=== PATIENT | male | born 1985 | race Caucasian/White ===

== ENCOUNTER 2021-07-16 08:57 | Inpatient (IN) ==
[2021-07-16] MEDS ORDERED: LORazepam 2 MG/1 ML VIAL IV STA (09:14)
[2021-07-16] MEDS ORDERED: SODIUM CHLORIDE 0.9% 1000ML 1,000 ML IV ONE (09:14)
--- NOTE | 2021-07-16 09:18 | Emergency Department Note ---
Impression & Plan Alcoholic intoxication, Alcohol withdrawal syndrome, Thrombocytopenia ED Provider Note NAME: ADALBERTO HARRIS AGE: 35 SEX: M : 1985 ARRIVES VIA: Walk-In INFORMANT: Patient ED PROVIDER(S): Truman Canseco DO CHIEF COMPLAINT: alcohol withdraw HPI: Patient is a 35-year-old male who presents ER as he wants to stop drinking alcohol. He notes he is an alcoholic and drinks a gallon of vodka a day in combination with multiple beers. He was sober for about 5 months and he started back up 2 to 3 months ago. He notes that his been trying to cut back on amount of vodka that he is drinking and is may be down to a half a gallon. This morning he is already had 8 beers. He has been trying to get into rehab for about 6 weeks and has been unsuccessful. He notes he is trying to taper down but continues to have shakes and feeling his heart race. Denies any headache or change in vision. No chest pain or shortness of breath. No other exacerbating or remitting factors. 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 ROS: See above HPI for pertinent positives & negatives. A total of 10 systems reviewed and were otherwise negative. PAST MEDICAL HISTORY:See Below PAST SURGICAL HISTORY:See Below FAMILY HISTORY:See Below SOCIAL HISTORY:See Below HOME MEDICATIONS:See Below ALLERGIES:See Below VITALS:See Below PHYSICAL EXAMINATION: GENERAL: Sitting up in bed, alert, anxious, slight tremors in the legs and hands EYE EXAM: normal conjunctiva. OROPHARYNX: no exudate, no erythema, lips, buccal mucosa, and tongue normal and mucous membranes are moist NECK: supple, no nuchal rigidity, no adenopathy, non-tender LUNGS: Clear to auscultation. Normal chest wall mechanics HEART: no murmurs, S1 normal and S2 normal ABDOMEN: abdomen soft, non-tender, normo-active bowel sounds, no masses, no rebound or guarding. UPPER EXTREMITIES: upper extremities are grossly normal. LOWER EXTREMITIES: No pitting edema. NEURO EXAM: Normal sensorium, cranial nerves II-XII grossly intact, normal speech, no gross weakness of arms, no gross weakness of legs. MEDICAL DECISION MAKING: Patient is a 35-year-old male who presents the ER for above-stated complaint. He notes he would like to detox from alcohol. IV was established blood work obtained. Labs show mild leukopenia 4. No significant anemia. Platelets were significantly low at 370. BMP with mild hypokalemia 3.4. Bilirubin was unremarkable. LFTs were unremarkable. Lipase was normal. UA was clean. Alcohol 320. He was given a small dose of Ativan due to the tremors and the hypertension with systolic pressures in the 160s. Patient does have a history of withdrawals. Discussed with patient and father at bedside we will discussed the hospitalist. Triage Nursing notes reviewed. Limited review of prior medical records performed Vital Signs: reviewed and remarkable for HTN and tachy Differential diagnosis: Overdose, toxicologic, infection, hypoglycemia, electrolyte abnormalities, cardiac sources, intracerebral event, neurologic, trauma, as well as other pathologies. ER treatment provided: See below Diagnostics interpreted by me: ECG: none Cardiac Monitoring: An order was placed for continuous cardiac monitoring. The monitor shows a rate of 92 with sinus rhythm. Laboratory studies: As stated above and show below. Imaging studies: See below Consultation(s): Discussed with Carolynn hardy for further evaluation Procedures: none Critical Care: None Past Med/Surg History Social History Smoking Status: Never smoker Feels Safe at Home: Yes Allergies Allergies Allergy/AdvReac Type Severity Reaction Status Date / Time amoxicillin [From Augmentin] Allergy Intermediate Vomiting Verified 07/16/21 13:17 clavulanic acid Allergy Intermediate Vomiting Verified 07/16/21 13:17 [From Augmentin] Results & Data (ED) Vital Signs Vital Signs - 24 hr 07/16/21 09:00 07/16/21 09:14 07/16/21 09:35 Temperature 36.7 C Temperature Source Temporal Artery Scan Oral Pulse Rate 99 H Pulse Rate from SpO2 Sensor Pulse Rhythm Regular Pulse Strength Normal Respiratory Rate 20 Respiratory Effort / Characteristics Non-Labored Spontaneous Respiratory Depth Normal Normal Respiratory Pattern Regular Blood Pressure 162/100 H Blood Pressure Mean 120 Blood Pressure Position Sitting Pulse Oximetry 98 Oxygen Delivery Method Room Air Room Air Room Air Sepsis Recent Fever Within 48 Hours No Sepsis New/Unexplained Change in Mental Status N/A Sepsis Action Taken by Nursing No Action Required 07/16/21 09:40 07/16/21 10:00 07/16/21 10:30 Temperature Temperature Source Pulse Rate 90 75 78 Pulse Rate from SpO2 Sensor Pulse Rhythm Pulse Strength Respiratory Rate 22 21 20 Respiratory Effort / Characteristics Respiratory Depth Respiratory Pattern Blood Pressure 140/89 134/80 Blood Pressure Mean 106 98 Blood Pressure Position Pulse Oximetry Oxygen Delivery Method Sepsis Recent Fever Within 48 Hours Sepsis New/Unexplained Change in Mental Status Sepsis Action Taken by Nursing 07/16/21 11:00 07/16/21 11:30 Temperature Temperature Source Pulse Rate 83 89 Pulse Rate from SpO2 Sensor 93 H Pulse Rhythm Pulse Strength Respiratory Rate 19 20 Respiratory Effort / Characteristics Respiratory Depth Respiratory Pattern Blood Pressure 124/80 150/107 H Blood Pressure Mean 94 121 Blood Pressure Position Pulse Oximetry 93 Oxygen Delivery Method Sepsis Recent Fever Within 48 Hours Sepsis New/Unexplained Change in Mental Status Sepsis Action Taken by Nursing Laboratory Data Result diagrams: 07/16/21 09:30 07/16/21 09:30 Lab Results 07/16/21 07/16/21 07/16/21 Range/Units 09:30 09:30 09:30 WBC 4.05 L (4.8-10.8) K/uL RBC 5.17 (4.7-6.1) M/uL Hgb 15.5 (14.0-18.0) g/dL Hct 43.7 (42-52) % MCV 84.5 (80-100) fL MCH 30.0 (25-34) pg MCHC 35.5 (32-36) g/dL RDW Std Deviation 48.0 H (36.4-46.3) fL RDW Coeff of Hailey 15.5 H (11.5-14.5) % Plt Count 37 L (130-400) K/uL MPV 10.4 (7.4-10.4) fL Immature Gran % (Auto) 0.0 % Neut % (Auto) 35.0 % Lymph % (Auto) 37.8 % [place] % (Auto) 23.5 % Eos % (Auto) 2.7 % Baso % (Auto) 1.0 % Neut # (Auto) 1.42 (1.4-6.5) K/uL Lymph # (Auto) 1.53 (1.2-3.4) K/uL [place] # (Auto) 0.95 H (0.11-0.59) K/uL Eos # (Auto) 0.11 (0-0.5) K/uL Baso # (Auto) 0.04 (0-0.2) K/uL Immature Gran # (Auto) 0.00 (0.00-0.02) K/uL Platelet Estimate Decreased L (Normal) Sodium 138 (136-145) mmol/L Potassium 3.4 L (3.5-5.1) mmol/L Chloride 104 (98-107) mmol/L Carbon Dioxide 24 (21-32) mmol/L Anion Gap 10 (3-11) BUN 6 (6-23) mg/dl Creatinine 0.76 (0.6-1.4) mg/dl Est Cr Clr Drug Dosing 167.6 ml/min Est GFR ( Amer) 136.0 ml/min Est GFR (Non-Af Amer) 117.4 ml/min BUN/Creatinine Ratio 7.9 L (10-20) Glucose 108 H (70-99(Fasting)) mg/dl Calcium 9.1 (8.5-10.1) mg/dl Total Bilirubin 1.0 (0.2-1.0) mg/dl AST 183 H (13-39) U/L ALT 83 H (7-52) U/L Alkaline Phosphatase 97 (34-104) U/L Total Protein 8.1 (6.0-8.3) gm/dl Albumin 4.3 (3.4-5.0) gm/dl Globulin 3.8 (2.5-4.0) gm/dl Albumin/Globulin Ratio 1.1 (0.9-2) Lipase 62 (11-82) U/L Urine Color Urine Appearance (Clear) Urine pH (4.5-7.5) Ur Specific [place] (1.000-1.030) Urine Protein (Negative) Urine Glucose (UA) (Negative) Urine Ketones (Negative) Urine Blood (Negative) Urine Nitrite (Negative) Urine Bilirubin (Negative) Urine Urobilinogen (Negative) Ur Leukocyte Esterase (Negative) Urine WBC (Auto) (0-5) /hpf Urine RBC (Auto) (0-4) /hpf U Hyaline Cast (Auto) (0-5) /lpf U Epithel Cells (Auto) (0-5) /lpf Urine Bacteria (Auto) (Negative) Ethyl Alcohol mg/dL 319.8 H (<10.0) mg/dl SARS-CoV-2, RNA, NAAT (NEGATIVE) 07/16/21 07/16/21 Range/Units 11:30 12:25 WBC (4.8-10.8) K/uL RBC (4.7-6.1) M/uL Hgb (14.0-18.0) g/dL Hct (42-52) % MCV (80-100) fL MCH (25-34) pg MCHC (32-36) g/dL RDW Std Deviation (36.4-46.3) fL RDW Coeff of Hailey (11.5-14.5) % Plt Count (130-400) K/uL MPV (7.4-10.4) fL Immature Gran % (Auto) % Neut % (Auto) % Lymph % (Auto) % [place] % (Auto) % Eos % (Auto) % Baso % (Auto) % Neut # (Auto) (1.4-6.5) K/uL Lymph # (Auto) (1.2-3.4) K/uL [place] # (Auto) (0.11-0.59) K/uL Eos # (Auto) (0-0.5) K/uL Baso # (Auto) (0-0.2) K/uL Immature Gran # (Auto) (0.00-0.02) K/uL Platelet Estimate (Normal) Sodium (136-145) mmol/L Potassium (3.5-5.1) mmol/L Chloride (98-107) mmol/L Carbon Dioxide (21-32) mmol/L Anion Gap (3-11) BUN (6-23) mg/dl Creatinine (0.6-1.4) mg/dl Est Cr Clr Drug Dosing ml/min Est GFR ( Amer) ml/min Est GFR (Non-Af Amer) ml/min BUN/Creatinine Ratio (10-20) Glucose (70-99(Fasting)) mg/dl Calcium (8.5-10.1) mg/dl Total Bilirubin (0.2-1.0) mg/dl AST (13-39) U/L ALT (7-52) U/L Alkaline Phosphatase (34-104) U/L Total Protein (6.0-8.3) gm/dl Albumin (3.4-5.0) gm/dl Globulin (2.5-4.0) gm/dl Albumin/Globulin Ratio (0.9-2) Lipase (11-82) U/L Urine Color Yellow Urine Appearance Clear (Clear) Urine pH 7.0 (4.5-7.5) Ur Specific [place] 1.003 (1.000-1.030) Urine Protein Negative (Negative) Urine Glucose (UA) Negative (Negative) Urine Ketones Negative (Negative) Urine Blood Trace H (Negative) Urine Nitrite Negative (Negative) Urine Bilirubin Negative (Negative) Urine Urobilinogen Negative (Negative) Ur Leukocyte Esterase Negative (Negative) Urine WBC (Auto) 0 (0-5) /hpf Urine RBC (Auto) 0-4 (0-4) /hpf U Hyaline Cast (Auto) 0 (0-5) /lpf U Epithel Cells (Auto) 0-5 (0-5) /lpf Urine Bacteria (Auto) Negative (Negative) Ethyl Alcohol mg/dL (<10.0) mg/dl SARS-CoV-2, RNA, NAAT NEGATIVE (NEGATIVE) Administered Medications Discontinued Medications Sodium Chloride (Nss 1000ml) 1,000 mls @ 999 mls/hr IV .[id number] ONE Stop: 07/16/21 10:14 Last Infusion: 07/16/21 10:32 Dose: 0 mls/hr Documented by: [id number] Admin: 07/16/21 09:32 Dose: 999 mls/hr Documented by: [id number] Lorazepam (Lorazepam 2 Mg/1 Ml Vial) 0.5 mg IV NOW STA Stop: 07/16/21 09:15 Last Admin: 07/16/21 09:32 Dose: 0.5 mg Documented by: [id number] Discharge Plan Visit Data Chief Complaint: Detox Request Stated Complaint: ALCOHOL DETOX REQUEST ED Provider: Truman Canseco Discharge Problem: Alcoholic intoxication, Alcohol withdrawal syndrome, Thrombocytopenia Discharge Instructions Eduardo/Other Patient Handouts: ED Alcohol Withdrawal Activity Restrictions/Additional Instructions: Please follow up with your primary care doctor with in the next 24 hours. Any worsening of your symptoms, please return to the ED immediately. This includes any fevers greater than 100.4, worsening pain, chest pain, shortness breath, persistent nausea, vomiting, persistent shaking of the upper extremities, elevated heart rate, confusion, is hallucinating, unable to eat or drink, or any other concerning signs or symptoms from your standpoint. When you follow-up with your PCP tomorrow/primary care doctor please make sure that you follow-up in regards to your platelets which are low at 40. You are given a prescription for Librium. You should not drink alcohol while taking this medication. If you become too sleepy while taking this medication do not take the next dose. You can decrease the dose but you can never take more than what is prescribed. Reasons to decrease are becoming very sleepy or lethargic or confused. If you take this medication and you still continue to withdrawal as you have before in the past please return to the closest ER. Do not drink, drive, operate heavy machinery or work within 24 hours of taking this medication. Again on day 1 your written for 2 tabs every 6 hours. If he becomes very tired or somnolent or confused or more lethargic not easily arousable please do not give any additional medication until he wakes up and becomes back to baseline as we discussed at bedside. If he becomes too sleepy or unable to arouse you must call EMS and return to the hospital immediately. Again do not drink alcohol or take any other sedatives in combination with this medication as it can cause respiratory depression and could kill you. You were found to have a blood pressure greater than 120 systolic over 90 diastolic. Due to the new Medicare guidelines, we are now recommending that you follow up with your primary care doctor in regards to this elevated blood pressure. Forms Stand Alone Forms: My [facility], Suicide Prevention Resources Referrals Referrals: PCP,NO [Physician] - Discharge Problem: Alcoholic intoxication Qualifiers: Complication of substance-induced condition: uncomplicated Qualified Code(s): F10.920 - Alcohol use, unspecified with intoxication, uncomplicated Alcohol withdrawal syndrome Qualifiers: Complication of substance-induced condition: uncomplicated Qualified Code(s): F10.230 - Alcohol dependence with withdrawal, uncomplicated
[2021-07-16 10:02] LABS: Albumin Globulin Ratio 1.1 (0.9-2); Albumin Level 4.3 gm/dl (3.4-5.0); BUN Creatinine Ratio 7.9 (10-20); Calcium 9.1 mg/dl (8.5-10.1); Creatinine Clr Calc Pharmacy 167.6 ml/min; Est GFR (Non-African American) 117.4 ml/min; Globulin 3.8 gm/dl (2.5-4.0); Potassium 3.4 mmol/L (3.5-5.1); Total Protein 8.1 gm/dl (6.0-8.3)
[2021-07-16 10:10] LABS: Basophils # (auto) 0.04 K/uL (0-0.2); Eosinophils # (auto) 0.11 K/uL (0-0.5); Eosinophils % (auto) 2.7 %; Hematocrit (blood only) 43.7 % (42-52); Hemoglobin 15.5 g/dL (14.0-18.0); Lymphocytes # (auto) 1.53 K/uL (1.2-3.4); Lymphocytes % (auto) 37.8 %; Mean Corpuscular Hgb Conc 35.5 g/dL (32-36); Mean Corpuscular Volume 84.5 fL (80-100); Mean Platelet Volume 10.4 fL (7.4-10.4); Monocytes # (auto) 0.95 K/uL (0.11-0.59); Monocytes % (auto) 23.5 %; Neutrophils # (auto) 1.42 K/uL (1.4-6.5); Platelet Count 37 K/uL (130-400); Platelet Estimate Decreased (Normal); RDW Coefficient of Variation 15.5 % (11.5-14.5); Red Blood Count 5.17 M/uL (4.7-6.1); White Blood Count 4.05 K/uL (4.8-10.8)
--- NOTE | 2021-07-16 12:51 | History & Physical Report ---
Date of Service July 16, 2021 Assessment & Plan (1) Alcohol withdrawal syndrome: Plan: Here requesting alcohol detox-last drink was the a.m. of 07/16, alcohol level 319 on arrival-drinks 1 gallon of vodka and 4 beers daily Has a history of alcohol withdrawal seizures and has been to rehab multiple times in the past, last seizure 2018 He has more recently been sober for as long as 7 months at a time in the last several years With known cirrhosis of the liver, high risk for outpatient detox -Admit to telemetry unit -AWSS protocol -Start Librium taper dosed for liver disease -IV Ativan as needed for elevated AWSS -Give banana bag x1 now, then start thiamine 200 mg IV once daily and folic acid 1 mg p.o. once daily along with multivitamin daily from home -Check ECG now for baseline -Give Protonix 40 mg p.o. once daily x2-week course (2) Alcohol use disorder: Plan: As above Requests inpatient alcohol rehab transfer after medically cleared from detox (3) Cirrhosis of liver: Plan: Follows with hepatology in [place] Has a history of esophageal varices that of been banded 9 times in the past, last EGD 2018 No recent vomiting or hematemesis or melena He reports he forgot to continue taking propranolol as prescribed previously With platelets 38K on arrival, INR not checked in the ED, and with elevated AST and ALT -Restart propranolol 10 mg p.o. twice daily for portal hypertension -Check INR in the morning If INR is normal, his Maddrey discriminant score is very low at only 1.0 and meld score also low at 8 He is compensated at this time Check hepatitis panel in the morning Limit Tylenol dosing to no more than 2 g in a 24-hour. Follow-up with hepatology after discharge -Follow LFTs, CBC, INR in the morning (4) Hypokalemia: Plan: Potassium mildly low on arrival Replaced with 20 mEq potassium chloride p.o. Follow BMP and magnesium levels, replete magnesium if low (5) Thrombocytopenia: Plan: Platelets 38 on arrival, he reports they have been lower than this in the past Related to his cirrhosis No evidence of bleeding at this time Follow CBC (6) Anxiety disorder: Plan: Continue home Prozac He reports he takes BuSpar but I do not see that it has been prescribed least in the last year and his external medication history-will not restart at this time (7) Portal hypertension: Plan: As above Restart propranolol 10 mg p.o. twice daily and titrate up as able to (8) HTN (hypertension), benign: Plan: Blood pressures controlled to mildly elevated at this time Secondary to alcohol withdrawal, also with history of essential hypertension Continue home lisinopril 20 mg daily Starting propranolol as above for portal hypertension (9) Esophageal varices: Plan: With a history of banding x9 No evidence of bleeding at this time Follow-up with GI after discharge Starting propranolol (10) Asthma: Plan: No acute exacerbation Continue albuterol HFA as needed Plan: DVT prophylaxis-SCDs only given thrombocytopenia Disposition-admit to telemetry unit, expect a least a 2 midnight stay. Plan is for transfer to inpatient alcohol rehab from here if possible-Case management consult placed History of Present Illness Chief Complaint: Alcohol detox Primary Care Provider: Jazmin Silveira This patient is a 35-year-old male with history of alcohol use disorder, alcohol withdrawal seizures, cirrhosis with esophageal varices, HTN, and asthma, who presents to the ER with request to detox from alcohol. He reports he has called numerous alcohol rehab programs both in and out of [place] for the last month and has not had any success with finding a place that will accept him. The main barrier to acceptance is that he has cirrhosis of the liver and the detox programs feel he would be best served to detox in a hospital setting. His last drink was just a few hours ago prior to coming to this hospital. He typ ically drinks 4 beers in the morning and then 1 gallon of vodka after that each day. The patient would like to be transferred directly to an inpatient alcohol rehab after he is medically cleared from alcohol detoxification. In the ER, he is feeling drowsy as he received Ativan, but denies nausea or vomiting, no abdominal pains, no bleeding from anywhere, no chest pain or shortness of breath. No fevers or Covid symptoms. He was found to have elevated AST and ALT but normal bilirubin, and platelets were low at 38,000 which he reports is not that low for him. He has received platelet transfusions in the past. He is vaccinated and boosted against Covid and tested negative for Covid upon admission. Allergies Allergy/AdvReac Type Severity Reaction Status Date / Time amoxicillin [From Augmentin] Allergy Intermediate Vomiting Verified 07/16/21 13:17 clavulanic acid Allergy Intermediate Vomiting Verified 07/16/21 13:17 [From Augmentin] Home Medications Medication Instructions Recorded Confirmed Type albuterol sulfate 90 mcg/actuation 1 puff INHALATION ONCE PRN 07/16/21 07/16/21 History aerosol inhaler fluoxetine 40 mg capsule (Prozac) 40 mg PO DAILY 07/16/21 07/16/21 History lisinopril 20 mg tablet 20 mg PO DAILY 07/16/21 07/16/21 History multivitamin 1 tab PO DAILY 07/16/21 07/16/21 History Past Med/Surg History Medical History Alcohol use disorder Anxiety disorder Asthma Cirrhosis of liver Esophageal varices History of seizure HTN (hypertension), benign Portal hypertension Surgical History No pertinent past surgical history Family History Other Family history non-contributory Social History Smoking Status: Never smoker Hx Alcohol Use: Yes Alcohol type: beer and hard liquor Alcohol type Comment: 1 gallon vodka and 4 beers daily Alcohol Intake Frequency: 4 or More x per/Week Hx Substance Use: No marital status: Single Current Living Situation: Family Current Living Situation Comment: Lives with parents current occupational status: unemployed and previously employed Feels Safe at Home: Yes Review of Systems Review of Systems: All systems reviewed & are unremarkable except as noted in HPI & below Physical Exam Constitutional: WD/WN, vitals as above Eyes: PERRL, conjunctivae normal, anicteric sclerae ENMT: external ear and nose normal, oropharynx normal Neck: trachea midline, no thyromegaly Respiratory: normal respiratory effort, lungs clear to auscultation Cardiovascular: RRR, no murmur, no edema Chest (Breasts): Chest: normal inspection of chest Gastrointestinal (Abdomen): normal bowel sounds, soft, nontender, no hepatosp lenomegaly Musculoskeletal: Extremities: extremities normal to inspection; no cyanosis and no clubbing Skin: no rashes, warm and dry Neurologic: moves all extremities and awake; no focal motor deficits Psychiatric: A+Ox3, euthymic affect Lymphatic: no lymphedema Results & Data Results & Data ([facility]) Vital Signs (Past 12 Hours) Vital Signs Temp Pulse Resp BP Pulse Ox 07/16/21 11:30 89 20 150/107 H 93 07/16/21 11:00 83 19 124/80 07/16/21 10:30 78 20 134/80 07/16/21 10:00 75 21 140/89 07/16/21 09:40 90 22 07/16/21 09:00 36.7 C 99 H 20 162/100 H 98 Laboratory Results 07/16/21 07/16/21 07/16/21 Range/Units 12:25 11:30 11:30 WBC (4.8-10.8) K/uL RBC (4.7-6.1) M/uL Hgb (14.0-18.0) g/dL Hct (42-52) % MCV (80-100) fL MCH (25-34) pg MCHC (32-36) g/dL RDW Std Deviation (36.4-46.3) fL RDW Coeff of Hailey (11.5-14.5) % Plt Count (130-400) K/uL MPV (7.4-10.4) fL Immature Gran % (Auto) % Neut % (Auto) % Lymph % (Auto) % [place] % (Auto) % Eos % (Auto) % Baso % (Auto) % Neut # (Auto) (1.4-6.5) K/uL Lymph # (Auto) (1.2-3.4) K/uL [place] # (Auto) (0.11-0.59) K/uL Eos # (Auto) (0-0.5) K/uL Baso # (Auto) (0-0.2) K/uL Immature Gran # (Auto) (0.00-0.02) K/uL Platelet Estimate (Normal) Sodium (136-145) mmol/L Potassium (3.5-5.1) mmol/L Chloride (98-107) mmol/L Carbon Dioxide (21-32) mmol/L Anion Gap (3-11) BUN (6-23) mg/dl Creatinine (0.6-1.4) mg/dl Est Cr Clr Drug Dosing ml/min Est GFR ( Amer) ml/min Est GFR (Non-Af Amer) ml/min BUN/Creatinine Ratio (10-20) Glucose (70-99(Fasting)) mg/dl Calcium (8.5-10.1) mg/dl Total Bilirubin (0.2-1.0) mg/dl AST (13-39) U/L ALT (7-52) U/L Alkaline Phosphatase (34-104) U/L Total Protein (6.0-8.3) gm/dl Albumin (3.4-5.0) gm/dl Globulin (2.5-4.0) gm/dl Albumin/Globulin Ratio (0.9-2) Lipase (11-82) U/L Urine Color Yellow Urine Appearance Clear (Clear) Urine pH 7.0 (4.5-7.5) Ur Specific [place] 1.003 (1.000-1.030) Urine Protein Negative (Negative) Urine Glucose (UA) Negative (Negative) Urine Ketones Negative (Negative) Urine Blood Trace H (Negative) Urine Nitrite Negative (Negative) Urine Bilirubin Negative (Negative) Urine Urobilinogen Negative (Negative) Ur Leukocyte Esterase Negative (Negative) Urine WBC (Auto) 0 (0-5) /hpf Urine RBC (Auto) 0-4 (0-4) /hpf U Hyaline Cast (Auto) 0 (0-5) /lpf U Epithel Cells (Auto) 0-5 (0-5) /lpf Urine Bacteria (Auto) Negative (Negative) Urine Opiates Screen Neg (Neg) Ur Methadone, Qual Neg (Neg) Urine Barbiturates Neg (Neg) Ur Phencyclidine (PCP) Neg (Neg) U Amphetamin/Meth Scrn Neg (Neg) MDMA (Ecstasy) Screen Neg (Neg) U Benzodiazepines Scrn Neg (Neg) Ur Cocaine Metabolite Neg (Neg) U Marijuana (THC) Screen Neg (Neg) Ethyl Alcohol mg/dL (<10.0) mg/dl SARS-CoV-2, RNA, NAAT NEGATIVE (NEGATIVE) 07/16/21 07/16/21 07/16/21 Range/Units 09:30 09:30 09:30 WBC 4.05 L (4.8-10.8) K/uL RBC 5.17 (4.7-6.1) M/uL Hgb 15.5 (14.0-18.0) g/dL Hct 43.7 (42-52) % MCV 84.5 (80-100) fL MCH 30.0 (25-34) pg MCHC 35.5 (32-36) g/dL RDW Std Deviation 48.0 H (36.4-46.3) fL RDW Coeff of Hailey 15.5 H (11.5-14.5) % Plt Count 37 L (130-400) K/uL MPV 10.4 (7.4-10.4) fL Immature Gran % (Auto) 0.0 % Neut % (Auto) 35.0 % Lymph % (Auto) 37.8 % [place] % (Auto) 23.5 % Eos % (Auto) 2.7 % Baso % (Auto) 1.0 % Neut # (Auto) 1.42 (1.4-6.5) K/uL Lymph # (Auto) 1.53 (1.2-3.4) K/uL [place] # (Auto) 0.95 H (0.11-0.59) K/uL Eos # (Auto) 0.11 (0-0.5) K/uL Baso # (Auto) 0.04 (0-0.2) K/uL Immature Gran # (Auto) 0.00 (0.00-0.02) K/uL Platelet Estimate Decreased L (Normal) Sodium 138 (136-145) mmol/L Potassium 3.4 L (3.5-5.1) mmol/L Chloride 104 (98-107) mmol/L Carbon Dioxide 24 (21-32) mmol/L Anion Gap 10 (3-11) BUN 6 (6-23) mg/dl Creatinine 0.76 (0.6-1.4) mg/dl Est Cr Clr Drug Dosing 167.6 ml/min Est GFR ( Amer) 136.0 ml/min Est GFR (Non-Af Amer) 117.4 ml/min BUN/Creatinine Ratio 7.9 L (10-20) Glucose 108 H (70-99(Fasting)) mg/dl Calcium 9.1 (8.5-10.1) mg/dl Total Bilirubin 1.0 (0.2-1.0) mg/dl AST 183 H (13-39) U/L ALT 83 H (7-52) U/L Alkaline Phosphatase 97 (34-104) U/L Total Protein 8.1 (6.0-8.3) gm/dl Albumin 4.3 (3.4-5.0) gm/dl Globulin 3.8 (2.5-4.0) gm/dl Albumin/Globulin Ratio 1.1 (0.9-2) Lipase 62 (11-82) U/L Urine Color Urine Appearance (Clear) Urine pH (4.5-7.5) Ur Specific [place] (1.000-1.030) Urine Protein (Negative) Urine Glucose (UA) (Negative) Urine Ketones (Negative) Urine Blood (Negative) Urine Nitrite (Negative) Urine Bilirubin (Negative) Urine Urobilinogen (Negative) Ur Leukocyte Esterase (Negative) Urine WBC (Auto) (0-5) /hpf Urine RBC (Auto) (0-4) /hpf U Hyaline Cast (Auto) (0-5) /lpf U Epithel Cells (Auto) (0-5) /lpf Urine Bacteria (Auto) (Negative) Urine Opiates Screen (Neg) Ur Methadone, Qual (Neg) Urine Barbiturates (Neg) Ur Phencyclidine (PCP) (Neg) U Amphetamin/Meth Scrn (Neg) MDMA (Ecstasy) Screen (Neg) U Benzodiazepines Scrn (Neg) Ur Cocaine Metabolite (Neg) U Marijuana (THC) Screen (Neg) Ethyl Alcohol mg/dL 319.8 H (<10.0) mg/dl SARS-CoV-2, RNA, NAAT (NEGATIVE) ECG Additional Comments: ECG on 07/16/2021 at 1414 with sinus rhythm, rate 77, first-degree AV block, no ischemic changes Code Status & VTE Plan VTE Prophylaxis Plan VTE Prophylaxis will be ordered: Yes PG Care Time/CCT Total # of Minutes Spent Total Time Spent with Patient: Total time spent is greater than 50% in coordination of care (as documented) at patient's floor/unit and/or counseling patient: Coding Level of Care Code 70544 Initial Inpt Care Lvl 3 Diagnoses Alcohol withdrawal syndrome F10.230 Complication of substance-induced condition: uncomplicated Thrombocytopenia D69.6 Alcohol use disorder Anxiety disorder F41.9 Portal hypertension K76.6 Esophageal varices I85.00 Asthma J45.909 Cirrhosis of liver K74.60 HTN (hypertension), benign I10 Hypokalemia E87.6 (1) Alcohol withdrawal syndrome Complication of substance-induced condition: uncomplicated Qualified Code(s): F10.230 - Alcohol dependence with withdrawal, uncomplicated
[2021-07-16 13:22] LABS: Appearance Urine Clear (Clear); Bacteria Urine Automated Negative (Negative); Bilirubin Urine Negative (Negative); Blood Urine Trace (Negative); Cast Urine Automated 0 /lpf (0-5); Color Urine Yellow; Epithelial Cell Urine Auto 0-5 /lpf (0-5); Glucose Urine UA Negative (Negative); Ketones Urine Negative (Negative); Leukocyte Esterase Urine Negative (Negative); Nitrite Urine Negative (Negative); Protein Urine Negative (Negative); RBC Urine Automated 0-4 /hpf (0-4); Specific Gravity Urine 1.003 (1.000-1.030); Urobilinogen Urine Negative (Negative); WBC Urine Automated 0 /hpf (0-5)
[2021-07-16] MEDS ORDERED: POTASSIUM CHLORIDE CRTAB 20 MEQ TABCR PO STA (13:28)
[2021-07-16] MEDS ORDERED: MULTI-VITAMIN INFUSION 10 ML, THIAMINE HCL 100 MG, FOLIC ACID 1 MG in SODIUM CHLORIDE 0... IV ONE (13:28)
[2021-07-16] MEDS ORDERED: chlordiazePOXIDE ALCOHOL WITHDRAWL 25MG PO STA (13:42)
[2021-07-16 13:50] LABS: Amphetamines+Metham, Urine Neg (Neg); Barbiturates, Urine Neg (Neg); Benzodiazepine, Urine Neg (Neg); Cocaine, Urine Neg (Neg); MDMA (Ecstacy), Urine Neg (Neg); Methadone, Urine Neg (Neg); Opiate, Urine Neg (Neg); Phencyclidine, Urine Neg (Neg)
[2021-07-16] MEDS: CHLORDIAZEPOXIDE 25MG STARTING DOSE PO SCH ×2 (14:30→20:28)
[2021-07-16] MEDS ORDERED: MAGNESIUM HYDROXIDE SUSP 30 ML UDC PO PRN (16:15)
[2021-07-16] MEDS ORDERED: ONDANSETRON INJ 2 MG/ML 2 ML VIAL IV PRN (16:15)
[2021-07-16] MEDS ORDERED: ACETAMINOPHEN 325 MG TAB PO PRN (16:15)
[2021-07-16] MEDS ORDERED: ALUMINUM/MAGNESIUM SUSP 30 ML UDC PO PRN (16:15)
[2021-07-16] MEDS ORDERED: ATIVAN IV ALCOHOL WITHDRAWL IV PRN (16:15)
[2021-07-16] MEDS ORDERED: chlordiazePOXIDE HCl 25 MG CAP PO SCH (16:15)
[2021-07-16] MEDS ORDERED: POLYETHYLENE (MIRALAX) 17 GM PACK PO PRN (16:15)
[2021-07-16] MEDS ORDERED: ALBUTEROL HFA 8 GM INHALER INH PRN (16:15)
--- NOTE | 2021-07-16 16:15 | Electrocardiogram Report ---
Test Reason : Blood Pressure : / mmHG Vent. Rate : 077 BPM Atrial Rate : 077 BPM P-R Int : 202 ms QRS Dur : 102 ms QT Int : 394 ms P-R-T Axes : 022 007 021 degrees QTc Int : 445 ms Poor data quality, interpretation may be adversely affected Normal sinus rhythm Poor R wave progression, consider anterior ND vs. lead placement vs. LVH possible inferior ND (old) Abnormal ECG No previous ECGs available Confirmed by John Bragg ([id number]) on 07/16/2021 4:15:13 PM Referred By: REFERRED SELF Confirmed By:Jh Bragg
[2021-07-16] MEDS: PANTOprazole 40 MG TAB PO SCH (16:37)
[2021-07-16] MEDS: PROPRANOLOL HCL 10 MG TAB PO SCH ×2 (17:08→21:24)
[2021-07-16] MEDS: LACTATED RINGER'S 1,000 ML IV SCH ×2 (17:13→21:25)
[2021-07-16] MEDS: LORazepam 2 MG/1 ML VIAL IV PRN ×4 (17:14→23:49)
[2021-07-16] MEDS ORDERED: MAGNESIUM SULFATE / D5W 1 GM/100 ML BAG IV ONE (18:53)
[2021-07-17] MEDS: LORazepam 2 MG/1 ML VIAL IV PRN ×9 (00:33→22:55)
[2021-07-17] MEDS: CHLORDIAZEPOXIDE 25MG STARTING DOSE PO SCH ×2 (01:31→08:38)
[2021-07-17 05:27] LABS: INR 1.2 (0.9-1.1); Prothrombin Time 12.2 Seconds (9.0-12.0)
[2021-07-17 05:49] LABS: Hematocrit (blood only) 39.8 % (42-52); Hemoglobin 13.6 g/dL (14.0-18.0); Mean Corpuscular Hemoglobin 29.6 pg (25-34); Mean Corpuscular Hgb Conc 34.2 g/dL (32-36); Mean Corpuscular Volume 86.7 fL (80-100); Platelet Count 27 K/uL (130-400); RDW Coefficient of Variation 15.6 % (11.5-14.5); RDW Standard Deviation 49.8 fL (36.4-46.3); Red Blood Count 4.59 M/uL (4.7-6.1); White Blood Count 1.88 K/uL (4.8-10.8)
[2021-07-17 05:50] LABS: Basophils # (auto) 0.02 K/uL (0-0.2); Basophils % (auto) 1.1 %; Eosinophils # (auto) 0.05 K/uL (0-0.5); Eosinophils % (auto) 2.7 %; Lymphocytes # (auto) 0.58 K/uL (1.2-3.4); Lymphocytes % (auto) 30.9 %; Monocytes % (auto) 21.3 %; Neutrophils # (auto) 0.83 K/uL (1.4-6.5); Platelet Estimate SIGNIFIC DECREASED (Normal)
[2021-07-17 06:02] LABS: Albumin Level 3.8 gm/dl (3.4-5.0); BUN Creatinine Ratio 11.1 (10-20); Bilirubin Direct 0.4 mg/dl (0-0.2); Bilirubin,Total 1.6 mg/dl (0.2-1.0); Calcium 8.6 mg/dl (8.5-10.1); Creatinine Clr Calc Pharmacy 201.8 ml/min; Est GFR (African American) 146.9 ml/min; Est GFR (Non-African American) 126.8 ml/min; Magnesium 1.7 mg/dl (1.7-2.4); Potassium 3.9 mmol/L (3.5-5.1)
--- NOTE | 2021-07-17 07:45 | Hospitalist Progress Note ---
Date of Service July 17, 2021 Assessment & Plan (1) Alcohol withdrawal syndrome: Plan: Here requesting alcohol detox-last drink was the a.m. of 07/16, alcohol level 319 on arrival-drinks 1 gallon of vodka and 4 beers daily Has a history of alcohol withdrawal seizures and has been to rehab multiple times in the past, last seizure 2018 He has more recently been sober for as long as 7 months at a time in the last several years With known cirrhosis of the liver, high risk for outpatient detox Did give gabapentin load and escalate Librium to 50 every 8 we will discontinue taper and follow clinically -AWSS protocol Was given IV banana bag in ER and thiamine IV once daily and folic acid 1 mg p.o. once daily along with multivitamin daily from home -Give Protonix 40 mg p.o. once daily x2-week course (2) Alcohol use disorder: Plan: As above Requests inpatient alcohol rehab transfer after medically cleared from detox however discussion with case management on 07/17/2021 the patient says he would prefer outpatient rehab now (3) Cirrhosis of liver: Plan: Follows with hepatology in [place] Has a history of esophageal varices that of been banded 9 times in the past, last EGD 2018 No recent vomiting or hematemesis or melena He reports he forgot to continue taking propranolol as prescribed previously With platelets 38K on arrival, INR not checked in the ED, and with elevated AST and ALT -Restarted propranolol 10 mg p.o. twice daily for portal hypertension -INR remains modestly elevated at 1.2 (4) Hypokalemia: Plan: Replete and follow magnesium (5) Thrombocytopenia: Plan: Platelets 38 on arrival, he reports they have been lower than this in the past Related to his cirrhosis No evidence of bleeding at this time Follow CBC (6) Anxiety disorder: Plan: Continue home Prozac He reports he takes BuSpar but I do not see that it has been prescribed least in the last year and his external medication history-will not restart at this time (7) Portal hypertension: Plan: Restarted propranolol 10 mg p.o. twice daily and titrate up as able to (8) HTN (hypertension), benign: Plan: Blood pressures controlled to mildly elevated at this time Secondary to alcohol withdrawal, also with history of essential hypertension Continue home lisinopril 20 mg daily Starting propranolol for portal hypertension (9) Esophageal varices: Plan: With a history of banding x9 No evidence of bleeding at this time Follow-up with GI after discharge Starting propranolol (10) Asthma: Plan: No acute exacerbation Continue albuterol HFA as needed Plan: DVT prophylaxis-SCDs only given thrombocytopenia Disposition-admit to telemetry unit, expect a least a 2 midnight stay. Plan is for transfer to inpatient alcohol rehab from here if possible-Case management consult placed Admission and Anticipated Discharge Date Admission Date: July 16, 2021 Subjective Patient was seen appears to be anxious reports that he is anxious is not tremulous is mildly hypertensive but not tachycardic Review of Systems Review of Systems: Moderate anxiety and distress no headache, no visual changes no speech or swallowing issues no chest pain, pressure or palpitations no shortness of breath, cough or wheezes no abdominal pain, nausea or vomiting, diarrhea or constipation no dysuria, hematuria or frequency no focal joint pain or swelling no back pain, CVA tenderness or radicular pain no bruising, bleeding or rashes no focal signs of weakness or numbness or altered sensation complaints of anxiety Physical Exam Physical Exam: The patient appeared anxious and in moderate distress, but well nourished and normally developed. Vital signs as documented slightly hypertensive but not tachycardic Head exam is normocephalic atraumatic Neck is without JVD, thyromegaly, or carotid bruits. Lungs are clear to auscultation, no focal loss of breath sounds Cardiac exam, Rhythm is regular.. No murmurs, rubs or gallops. Abdominal exam reveals normal bowel sounds, soft non tender, no masses Extremities are nonedematous and both pedal pulses are present Neurologic exam is alert and oriented, no focal loss of strength or sensation no tremor or asterixis is seen Skin is without bruises or rashes Psychologically is with concerns for anxiety Results & Data Results & Data ([facility]) Vital Signs (Past 12 Hours) Vital Signs Temp Pulse Pulse Resp BP BP Pulse Ox 07/17/21 04:46 99.0 F 73 23 150/103 H 95 07/17/21 03:00 70 16 149/90 H 07/17/21 02:32 98.8 F 88 22 144/84 H 95 07/17/21 02:31 84 13 141/84 H 96 07/17/21 02:30 81 15 95 07/17/21 02:29 86 15 143/83 H 94 07/17/21 02:00 72 19 142/90 H 93 07/17/21 01:34 77 20 147/87 H 96 07/17/21 01:30 77 93 07/17/21 01:01 80 13 95 07/17/21 01:00 133/72 07/17/21 00:59 81 20 94 07/17/21 00:31 98.8 F 89 22 142/80 H 96 07/17/21 00:30 75 22 142/80 H 91 07/17/21 00:26 80 16 152/77 H 96 07/17/21 00:00 79 20 91 07/16/21 23:52 99.3 F 92 H 22 145/85 H 96 07/16/21 23:44 81 23 148/85 H 94 07/16/21 23:30 82 21 95 07/16/21 23:14 82 17 161/88 H 93 07/16/21 23:00 95 07/16/21 22:33 82 10 L 93 07/16/21 22:01 83 17 94 07/16/21 22:00 135/84 07/16/21 21:59 79 22 92 07/16/21 21:32 88 22 95 07/16/21 21:27 98.8 F 100 H 89 19 157/89 H 157/89 H 95 07/16/21 21:01 85 18 132/61 94 07/16/21 20:32 91 H 22 94 07/16/21 20:02 74 19 95 PG Care Time/CCT Total # of Minutes Spent Total Time Spent with Patient: Total time spent is greater than 50% in coordination of care (as documented) at patient's floor/unit and/or counseling patient: Coding Level of Care Code 01662 Subseq Hosp Care Lvl 3 Diagnoses Alcohol withdrawal syndrome F10.230 Complication of substance-induced condition: uncomplicated Alcohol use disorder Cirrhosis of liver K74.60 Hypokalemia E87.6 Thrombocytopenia D69.6 Anxiety disorder F41.9 Portal hypertension K76.6 HTN (hypertension), benign I10 Esophageal varices I85.00 Asthma J45.909 (1) Alcohol withdrawal syndrome Complication of substance-induced condition: uncomplicated Qualified Code(s): F10.230 - Alcohol dependence with withdrawal, uncomplicated
[2021-07-17] MEDS: THIAMINE HCL 200 MG in SODIUM CHLORIDE 0.9% 50 ML IV SCH (08:38)
[2021-07-17] MEDS: PROPRANOLOL HCL 10 MG TAB PO SCH ×2 (08:38→21:19)
[2021-07-17] MEDS: FOLIC ACID 1 MG TAB PO SCH (08:39)
[2021-07-17] MEDS: lisinopril 20 MG TAB PO SCH (08:39)
[2021-07-17] MEDS: PANTOprazole 40 MG TAB PO SCH (08:39)
[2021-07-17] MEDS: FLUoxetine HCL 20 MG CAP PO SCH (08:40)
[2021-07-17] MEDS: MULTIVITAMIN TAB PO SCH (08:40)
[2021-07-17] MEDS ORDERED: GABAPENTIN 1200MG ALCOHOL WITHDRAWAL LOAD PO STA (10:44)
[2021-07-17] MEDS ORDERED: GABAPENTIN 600 MG TAB PO ONE (10:44)
[2021-07-17] MEDS ORDERED: chlordiazePOXIDE HCl 25 MG CAP PO ONE (11:15)
[2021-07-17] MEDS ORDERED: CHLORDIAZEPOXIDE 25MG 2ND DOSE PO SCH (14:30)
[2021-07-17] MEDS: GABAPENTIN 600 MG TAB PO SCH ×2 (16:59→22:54)
[2021-07-17] MEDS: chlordiazePOXIDE HCl 25 MG CAP PO SCH ×2 (16:59→22:54)
[2021-07-18] MEDS: chlordiazePOXIDE HCl 25 MG CAP PO SCH ×3 (06:40→22:51)
[2021-07-18 07:02] LABS: HBSAG NON-REACTIVE (NON-REACTIVE); Hepatitis A Antibody IgM NON-REACTIVE (NON-REACTIVE); Hepatitis B Core Antibody IgM NON-REACTIVE (NON-REACTIVE)
[2021-07-18] MEDS: GABAPENTIN 600 MG TAB PO SCH ×3 (07:24→22:52)
[2021-07-18] MEDS: FOLIC ACID 1 MG TAB PO SCH (08:53)
[2021-07-18] MEDS: FLUoxetine HCL 20 MG CAP PO SCH (08:53)
[2021-07-18] MEDS: lisinopril 20 MG TAB PO SCH (08:53)
[2021-07-18] MEDS: PROPRANOLOL HCL 10 MG TAB PO SCH ×2 (08:54→20:42)
[2021-07-18] MEDS: PANTOprazole 40 MG TAB PO SCH (08:54)
[2021-07-18] MEDS: MULTIVITAMIN TAB PO SCH (08:54)
[2021-07-18] MEDS: THIAMINE HCL 200 MG in SODIUM CHLORIDE 0.9% 50 ML IV SCH (08:55)
[2021-07-18 09:19] LABS: Hematocrit (blood only) 43.6 % (42-52); Mean Corpuscular Hemoglobin 30.1 pg (25-34); Mean Corpuscular Hgb Conc 34.4 g/dL (32-36); Mean Corpuscular Volume 87.4 fL (80-100); RDW Coefficient of Variation 15.7 % (11.5-14.5); RDW Standard Deviation 50.1 fL (36.4-46.3); Red Blood Count 4.99 M/uL (4.7-6.1); White Blood Count 3.41 K/uL (4.8-10.8)
[2021-07-18 09:20] LABS: Mean Platelet Volume 11.3 fL (7.4-10.4); Platelet Count 32 K/uL (130-400)
[2021-07-18 09:40] LABS: Albumin Globulin Ratio 1.2 (0.9-2); Albumin Level 4.3 gm/dl (3.4-5.0); BUN Creatinine Ratio 16.2 (10-20); Bilirubin,Total 2.2 mg/dl (0.2-1.0); Calcium 9.5 mg/dl (8.5-10.1); Creatinine Clr Calc Pharmacy 186.9 ml/min; Est GFR (African American) 142.4 ml/min; Est GFR (Non-African American) 122.9 ml/min; Globulin 3.7 gm/dl (2.5-4.0); Potassium 3.3 mmol/L (3.5-5.1)
[2021-07-18] MEDS ORDERED: CHLORDIAZEPOXIDE 10MG 3RD DOSE PO SCH (14:30)
--- NOTE | 2021-07-18 18:35 | Hospitalist Progress Note ---
Date of Service July 18, 2021 Assessment & Plan (1) Alcohol withdrawal syndrome: Plan: Here requesting alcohol detox-last drink was the a.m. of 07/16, alcohol level 319 on arrival-drinks 1 gallon of vodka and 4 beers daily Has a history of alcohol withdrawal seizures and has been to rehab multiple times in the past, last seizure 2018 He has more recently been sober for as long as 7 months at a time in the last several years With known cirrhosis of the liver, high risk for outpatient detox Patient is dramatically improved after gabapentin load and escalate Librium to 50 every 8 we will discontinue taper and follow clinically -AWSS protocol Was given IV banana bag in ER and thiamine IV once daily and folic acid 1 mg p.o. once daily along with multivitamin daily from home -Give Protonix 40 mg p.o. once daily x2-week course (2) Alcohol use disorder: Plan: As above Requests inpatient alcohol rehab transfer after medically cleared from detox however discussion with case management on 07/17/2021 the patient says he would prefer outpatient rehab now (3) Cirrhosis of liver: Plan: Follows with hepatology in [place] Has a history of esophageal varices that of been banded 9 times in the past, last EGD 2018 No recent vomiting or hematemesis or melena He reports he forgot to continue taking propranolol as prescribed previously With platelets 38K on arrival, INR not checked in the ED, and with elevated AST and ALT -Restarted propranolol 10 mg p.o. twice daily for portal hypertension -INR remains modestly elevated at 1.2 (4) Hypokalemia: Plan: Continues to require repletion (5) Thrombocytopenia: Plan: Platelets 38 on arrival, he reports they have been lower than this in the past Related to his cirrhosis No evidence of bleeding at this time Follow CBC (6) Anxiety disorder: Plan: Continue home Prozac He reports he takes BuSpar but I do not see that it has been prescribed least in the last year and his external medication history-will not restart at this time (7) Portal hypertension: Plan: Restarted propranolol 10 mg p.o. twice daily and titrate up as able to (8) HTN (hypertension), benign: Plan: Blood pressures controlled to mildly lower at this time Secondary to alcohol withdrawal, also with history of essential hypertension Continue home lisinopril 20 mg daily Starting propranolol for portal hypertension (9) Esophageal varices: Plan: With a history of banding x9 No evidence of bleeding at this time Follow-up with GI after discharge propranolol (10) Asthma: Plan: No acute exacerbation Continue albuterol HFA as needed Plan: DVT prophylaxis-SCDs only given thrombocytopenia Admission and Anticipated Discharge Date Admission Date: July 16, 2021 Subjective Patient appears much better is not sleepy I feel he got a good place with his detox. Likely consider titration down on 05/21/2021 Review of Systems Review of Systems: improved and lessening anxiety and distress no headache, no visual changes no speech or swallowing issues no chest pain, pressure or palpitations no shortness of breath, cough or wheezes no abdominal pain, nausea or vomiting, diarrhea or constipation no dysuria, hematuria or frequency no focal joint pain or swelling no back pain, CVA tenderness or radicular pain no bruising, bleeding or rashes no focal signs of weakness or numbness or altered sensation complaints of anxiety Physical Exam Physical Exam: The patient well nourished and normally developed. Vital signs as documented slightly hypertensive but not tachycardic Head exam is normocephalic atraumatic Neck is without JVD, thyromegaly, or carotid bruits. Lungs are clear to auscultation, no focal loss of breath sounds Cardiac exam, Rhythm is regular.. No murmurs, rubs or gallops. Abdominal exam reveals normal bowel sounds, soft non tender, no masses Extremities are nonedematous and both pedal pulses are present Neurologic exam is alert and oriented, no focal loss of strength or sensation no tremor or asterixis Skin is without bruises or rashes Psychologically is with concerns for anxiety Results & Data Results & Data ([facility]) Vital Signs (Past 12 Hours) Vital Signs Temp Pulse Resp BP Pulse Ox 07/18/21 15:36 98.2 F 75 18 120/84 97 07/18/21 11:44 97.7 F 80 18 133/92 96 07/18/21 08:08 97.9 F 83 18 149/104 H 97 07/18/21 07:27 97.9 F 79 145/97 H 95 PG Care Time/CCT Total # of Minutes Spent Total Time Spent with Patient: Total time spent is greater than 50% in coordination of care (as documented) at patient's floor/unit and/or counseling patient: Coding Level of Care Code 07532 Subseq Hosp Care Lvl 2 Diagnoses Alcohol withdrawal syndrome F10.230 Complication of substance-induced condition: uncomplicated Alcohol use disorder Cirrhosis of liver K74.60 Hypokalemia E87.6 Thrombocytopenia D69.6 Anxiety disorder F41.9 Portal hypertension K76.6 HTN (hypertension), benign I10 Esophageal varices I85.00 Asthma J45.909 (1) Alcohol withdrawal syndrome Complication of substance-induced condition: uncomplicated Qualified Code(s): F10.230 - Alcohol dependence with withdrawal, uncomplicated
[2021-07-18] MEDS: POTASSIUM CHLORIDE CRTAB 20 MEQ TABCR PO SCH (20:41)
[2021-07-19 07:33] LABS: Mean Corpuscular Hgb Conc 34.2 g/dL (32-36)
[2021-07-19 07:48] LABS: Hematocrit (blood only) 44.4 % (42-52); Hemoglobin 15.2 g/dL (14.0-18.0); Mean Corpuscular Hemoglobin 30.1 pg (25-34); Mean Corpuscular Volume 87.9 fL (80-100); Platelet Count 48 K/uL (130-400); Platelet Estimate Decreased (Normal); RDW Standard Deviation 51.5 fL (36.4-46.3); Red Blood Count 5.05 M/uL (4.7-6.1); White Blood Count 4.56 K/uL (4.8-10.8)
[2021-07-19 07:53] LABS: Albumin Globulin Ratio 1.2 (0.9-2); Albumin Level 4.3 gm/dl (3.4-5.0); BUN Creatinine Ratio 17.5 (10-20); Bilirubin,Total 1.7 mg/dl (0.2-1.0); Calcium 9.4 mg/dl (8.5-10.1); Creatinine Clr Calc Pharmacy 158.9 ml/min; Est GFR (African American) 133.2 ml/min; Est GFR (Non-African American) 114.9 ml/min; Globulin 3.5 gm/dl (2.5-4.0); Potassium 3.8 mmol/L (3.5-5.1); Total Protein 7.8 gm/dl (6.0-8.3)
[2021-07-19] MEDS: PROPRANOLOL HCL 10 MG TAB PO SCH (08:30)
[2021-07-19] MEDS: FOLIC ACID 1 MG TAB PO SCH (08:31)
[2021-07-19] MEDS: MULTIVITAMIN TAB PO SCH (08:31)
[2021-07-19] MEDS: lisinopril 20 MG TAB PO SCH (08:31)
[2021-07-19] MEDS: FLUoxetine HCL 20 MG CAP PO SCH (08:31)
[2021-07-19] MEDS: POTASSIUM CHLORIDE CRTAB 20 MEQ TABCR PO SCH (08:31)
[2021-07-19] MEDS: PANTOprazole 40 MG TAB PO SCH (08:32)
[2021-07-19] MEDS: THIAMINE HCL 200 MG in SODIUM CHLORIDE 0.9% 50 ML IV SCH (08:40)
[2021-07-19] MEDS ORDERED: chlordiazePOXIDE HCl 25 MG CAP PO SCH (09:00)
[2021-07-19] MEDS ORDERED: GABAPENTIN 600 MG TAB PO SCH (10:45)
[2021-07-19] MEDS: chlordiazePOXIDE HCl 25 MG CAP PO SCH (11:53)
--- NOTE | 2021-07-19 12:11 | Discharge Summary ---
Date of Service July 19, 2021 Admission HPI Per Admitting Provider This patient is a 35-year-old male with history of alcohol use disorder, alcohol withdrawal seizures, cirrhosis with esophageal varices, HTN, and asthma, who presents to the ER with request to detox from alcohol. He reports he has called numerous alcohol rehab programs both in and out of [place] for the last month and has not had any success with finding a place that will accept him. The main barrier to acceptance is that he has cirrhosis of the liver and the detox programs feel he would be best served to detox in a hospital setting. His last drink was just a few hours ago prior to coming to this hospital. He typically drinks 4 beers in the morning and then 1 gallon of vodka after that each day. The patient would like to be transferred directly to an inpatient alcohol rehab after he is medically cleared from alcohol detoxification. In the ER, he is feeling drowsy as he received Ativan, but denies nausea or vomiting, no abdominal pains, no bleeding from anywhere, no chest pain or shortness of breath. No fevers or Covid symptoms. He was found to have elevated AST and ALT but normal bilirubin, and platelets were low at 38,000 which he reports is not that low for him. He has received platelet transfusions in the past. He is vaccinated and boosted against Covid and tested negative for Covid upon admission. 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 Lungs are clear to auscultation and appear unlabored Cardiac exam, Rhythm is regular.. No murmurs, rubs or gallops. Abdominal exam reveals normal bowel sounds, soft non tender, no masses Extremities are nonedematous and both pedal pulses are normal. Neurologic exam is alert and oriented, no focal loss of strength or sensation Skin is without bruises or rashes Psychologically is without concerns for anxiety or depression. Discharge Data Allergies Allergy/AdvReac Type Severity Reaction Status Date / Time amoxicillin [From Augmentin] Allergy Intermediate Vomiting Verified 07/16/21 13:17 clavulanic acid Allergy Intermediate Vomiting Verified 07/16/21 13:17 [From Augmentin] Consultations 07/16/21 12:24 ED Decision to Admit Stat Hospital Course (1) Alcohol withdrawal syndrome: Here requesting alcohol detox-last drink was the a.m. of 07/16, alcohol level 319 on arrival-drinks 1 gallon of vodka and 4 beers daily Has a history of alcohol withdrawal seizures and has been to rehab multiple times in the past, last seizure 2018 He has more recently been sober for as long as 7 months at a time in the last several years With known cirrhosis of the liver, high risk for outpatient detox Patient is dramatically improved after gabapentin load and Librium We will send home on tapering doses of Librium and gabapentin encouraging them strong outpatient follow-up. He has an AA sponsor and plans on calling them when he leaves the hospital (2) Alcohol use disorder: As above Requests inpatient alcohol rehab transfer after medically cleared from detox however discussion with case management on 07/17/2021 the patient says he would prefer outpatient rehab now (3) Cirrhosis of liver: Follows with hepatology in [place] Has a history of esophageal varices that of been banded 9 times in the past, last EGD 2018 No recent vomiting or hematemesis or melena He reports he forgot to continue taking propranolol as prescribed previously With platelets 38K on arrival, INR not checked in the ED, and with elevated AST and ALT -Restarted propranolol 10 mg p.o. twice daily for portal hypertension (4) Hypokalemia: Continues to require repletion (5) Thrombocytopenia: Platelets 38 on arrival, he reports they have been lower than this in the past Related to his cirrhosis No evidence of bleeding at this time Follow CBC (6) Anxiety disorder: Continue home Prozac He reports he takes BuSpar but I do not see that it has been prescribed least in the last year and his external medication history-will not restart at this time (7) Portal hypertension: Restarted propranolol 10 mg p.o. twice daily (8) HTN (hypertension), benign: Blood pressures controlled to mildly lower at this time Secondary to alcohol withdrawal, also with history of essential hypertension Continue home lisinopril 20 mg daily Starting propranolol for portal hypertension (9) Esophageal varices: With a history of banding x9 No evidence of bleeding at this time Follow-up with GI after discharge propranolol (10) Asthma: No acute exacerbation Continue albuterol HFA as needed Patient be discharged in the care of his parents he feels they can provide him the support he needs. He feels all alcohols been removed from his home. I encouraged him to pick his prescriptions up on his way home and have absolute abstinence from alcohol in the future Total Time Total Time Spent Total Time Spent (In Minutes): It required greater than 30 minutes to prepare this patient for discharge Discharge Plan Discharge Items Patient Disposition: Home - Self-Care Reason For Visit: ETOH DETOX/WITHDRAWL Discharge Diagnosis: Alcohol withdrawal Alcohol abuse Early alcoholic hepatitisnot requiring steroid Activity: Per Instructions section Non-emergency contact: Primary Care Provider Call non-emergency contact if: your symptoms worsen Follow-up/Referrals: Jazmin Silveira M.D. [Primary Care Provider] - Diet: Regular Addtl Attending Provider Instructions: Absolute discontinuation of all alcohol now in the future. Please follow the tapering guidelines for both your Librium and gabapentin Please engage in a support structure for alcohol withdrawal such as AA or even consider private programs or inpatient alcohol cessation programs Please take good care of yourself including good nutrition hydration and rest Important part of your journey is to be open and honest with all family and friends about your addiction and ask and be open to help from them Pending Studies at Discharge: No Stand-Alone Forms: My [facility] [employer], Smoking Cessation Medications and DC Order Prescriptions: New propranolol 10 mg Tablet 10 mg PO BID Qty: 60 RF: 2 chlordiazepoxide HCl 10 mg Capsule 10 mg PO UD Qty: 42 RF: 0 gabapentin 600 mg Tablet 600 mg PO UD Qty: 10 RF: 0 Continued lisinopril 20 mg tablet 20 mg PO DAILY RF: 0 multivitamin Tablet 1 tab PO DAILY RF: 0 fluoxetine [Prozac] 40 mg Capsule 40 mg PO DAILY RF: 0 albuterol sulfate 90 mcg/actuation HFA aerosol inhaler 1 puff INHALATION ONCE PRN (Reason: Shortness Of Breath) RF: 0 Discharge Orders: Discharge Order (Routine); Ordered 07/19/21 Ordered By: Dhaval Antonio Admission Data Admit Date/Time: 07/16/21 13:28 Attending Provider: Dhaval Antonio Admit Provider: Carolynn Dowling Primary Care Provider: Jazmin Silveira Other Providers: Carolynn Dowling Coding Level of Care Code D/C DAY MANAGEMENT >30 MINS Diagnoses Alcohol withdrawal syndrome F10.230 Complication of substance-induced condition: uncomplicated Alcohol use disorder Cirrhosis of liver K74.60 Hypokalemia E87.6 Thrombocytopenia D69.6 Anxiety disorder F41.9 Portal hypertension K76.6 HTN (hypertension), benign I10 Esophageal varices I85.00 Asthma J45.909
[2021-07-19] MEDS ORDERED: chlordiazePOXIDE HCl 5 MG CAP PO SCH (13:45)
[2021-07-19] MEDS ORDERED: CHLORDIAZEPOXIDE 5MG 4TH DOSE PO SCH (14:30)
[2021-07-20] MEDS ORDERED: GABAPENTIN 600 MG TAB PO SCH (22:45)
== END 2021-07-19 14:59 | disposition home or self-care (01) | DRG 897 ==
LOC: ED 08:57 → SUATTDRO 13:28 → EDINP 13:28 → 1E 18:54 → 2S 07-17 17:13
DX: Z88.8 Allergy status to other drugs, medicaments and biological substances; D69.6 Thrombocytopenia, unspecified; K74.60 Unspecified cirrhosis of liver; K70.10 Alcoholic hepatitis without ascites; E87.6 Hypokalemia; J45.909 Unspecified asthma, uncomplicated; F10.239 Alcohol dependence with withdrawal, unspecified; I85.10 Secondary esophageal varices without bleeding; K76.6 Portal hypertension; Z88.1 Allergy status to other antibiotic agents; F10.229 Alcohol dependence with intoxication, unspecified; I10 Essential (primary) hypertension; F41.9 Anxiety disorder, unspecified